=== PATIENT | female | born 1940 | race Caucasian/White ===

== ENCOUNTER 2016-05-05 05:26 | Emergency (ER) | payer MEDICAID, MEDICARE, OTHER ==
[~2016-05-05] VITALS: Ht 157.5 cm; Wt 81.8 kg
[~2016-05-05 05:26] MED LIST: AMLO2.5T PO; ATOR40TA28 PO; LOSA25TA21 PO
[2016-05-05 05:30] VITALS: BP 100/51
[2016-05-05] MEDS ORDERED: ASPI81 PO (05:39)
[2016-05-05] MEDS ORDERED: PRED10 PO (05:39)
[2016-05-05 05:41] LABS: GLUCOSE,POINT OF CARE 120 MG/DL (70-110)
[2016-05-05 06:08] LABS: APPEARANCE,URINE TURBID (CLEAR); GLUCOSE, URINE (UA) NEGATIVE (NEGATIVE); KETONES,URINE NEGATIVE (NEGATIVE); LEUKOCYTE ESTERASE ,URINE LARGE (NEGATIVE); OCCULT BLOOD,URINE MODERATE (NEGATIVE); PROTEIN,URINE SEE CONFIRM (NEGATIVE)
[2016-05-05 06:11] LABS: ADD UA MICROSCOPIC YES
[2016-05-05 06:15] LABS: RBC,URINE 26-50 /HPF (0-2); SQUAMOUS EPITHELIAL CELL,UR Few /LPF (None Seen); SULFOSALICYLIC ACID,URINE 1+ (Negative); WBC,URINE 51-100 /HPF (0-5)
== END 2016-05-05 06:25 | disposition home or self-care (01) ==
LOC: EMS 05:27
DX: N39.0 Urinary tract infection, site not specified (principal); Z88.1 Allergy status to other antibiotic agents; I10 Essential (primary) hypertension; E78.00 Pure hypercholesterolemia, unspecified; Z79.82 Long term (current) use of aspirin
CPT/HCPCS: 82962; 87086; 99284

== ENCOUNTER 2016-05-10 21:52 | Emergency (ER) | payer MEDICARE ==
[~2016-05-10] VITALS: Ht 160 cm; Wt 81.8 kg
[~2016-05-10 21:52] MED LIST changes: +ASPI81 PO; +PRED10 PO
[2016-05-10] MEDS ORDERED: PHEN-853 PO (21:55)
[2016-05-10] MEDS ORDERED: MACR100 PO (21:55)
[2016-05-10 23:33] LABS: APPEARANCE,URINE CLEAR (CLEAR); GLUCOSE, URINE (UA) NEGATIVE (NEGATIVE); KETONES,URINE NEGATIVE (NEGATIVE); LEUKOCYTE ESTERASE ,URINE MODERATE (NEGATIVE); OCCULT BLOOD,URINE NEGATIVE (NEGATIVE); PH,URINE 5.5 (5.0-8.0); PROTEIN,URINE NEGATIVE (NEGATIVE)
[2016-05-10 23:44] LABS: RBC,URINE 0-2 /HPF (0-2); SQUAMOUS EPITHELIAL CELL,UR Few /LPF (None Seen)
[2016-05-11 00:51] VITALS: BP 119/69
== END 2016-05-11 01:00 | disposition home or self-care (01) ==
LOC: EMS 21:55
DX: N39.0 Urinary tract infection, site not specified (principal); E78.00 Pure hypercholesterolemia, unspecified; I10 Essential (primary) hypertension; Z79.82 Long term (current) use of aspirin; Z88.5 Allergy status to narcotic agent
CPT/HCPCS: 87086; 99284